=== PATIENT | male | born 1975 | race Caucasian/White ===

== ENCOUNTER → 2018-09-11 | Outpatient (CLI) | payer MEDICARE, MEDICAID, SELFPAY ==
--- NOTE | 2018-09-11 14:35 | CT_ITS ---
STUDY: CT BRAIN WITHOUT CONTRAST REASON FOR EXAM: Male, 43 years old. Headache RADIATION DOSAGE (If Supplied By Facility): CTDIvol = ( 60.81 ) mGy, DLP = ( 1044.28 ) mGycm TECHNIQUE: Transaxial CT imaging of the brain was performed without administration of intravenous contrast material. Individualized dose optimization techniques were used for this CT. COMPARISON: MRI dated 03/15/2014 FINDINGS: There is no acute bleed or infarct. There are normal white matter tracts. The ventricles are normal in configuration. There is no hydrocephalus. The visualized paranasal sinuses are clear. The mastoid air cells are well aerated. There is no skull fracture. CT/Brain/Head without Contrast IMPRESSION: No acute intracranial abnormality. Electronically Signed: Yair Harley, at 15:27 EDT Tel , Service support ,
== END | disposition home or self-care (01) ==
LOC: CT 14:32
PROVIDERS: Family Provider Internal Medicine; PCP Internal Medicine; Referring Provider Nurse Practitioner Family; Visit Provider Nurse Practitioner Family
DX: G44.52 New daily persistent headache (NDPH) (principal); H53.8 Other visual disturbances
CPT/HCPCS: 70450

== ENCOUNTER → 2019-01-26 15:06 | Outpatient (CLI) | payer MEDICARE, SELFPAY ==
--- NOTE | 2019-01-26 15:17 | MRI_ITS ---
STUDY: MRI BRAIN WITH AND WITHOUT CONTRAST REASON FOR EXAM: Male, 43 years old. diplopia, FRONTAL HEADACHE TECHNIQUE: Standardized multiplanar fat and water weighted pulse sequences were obtained. IV Dotarem 20 was administered for the contrast portion of the examination. COMPARISON: None. FINDINGS: Normal size of the ventricles and extra-axial spaces for the patient's age. Normal white matter tracts of the supratentorial brain. Normal bilateral basal ganglia. Normal thalami. There is no extra-axial fluid accumulation. Normal flow voids within the major intracranial circulation suggesting patency by spin echo criteria. Normal venous enhancement. There is no enhancing intra-axial or extra-axial abnormality. Normal sella turcica, pituitary gland, infundibular stalk, optic chiasm and hypothalamus. Normal tectal plate and pineal gland. Normal midbrain, janna and medulla. Normal cerebellum. Normal basal cisterns. Normal bilateral temporal bones. Normal bilateral internal auditory canals. No demonstrated orbital abnormality, within the constraints of a routine brain study. Normal visualized paranasal sinuses. Normal calvarium and skull base. Normal visualized soft tissue structures. Normal visualized upper cervical spine. MRI/Brain W/WO Contrast IMPRESSION: Normal unenhanced and enhanced MRI of the brain. Electronically Signed: Nataly Ledbetter, at 7:13 EST Tel , Service support ,
== END ==
PROVIDERS: Family Provider Family Medicine; PCP Family Medicine; Referring Provider Psychiatry & Neurology Neurology; Visit Provider Psychiatry & Neurology Neurology
DX: H53.2 Diplopia (principal)
CPT/HCPCS: 70553; A9575

== ENCOUNTER → 2019-03-01 13:41 | Outpatient (CLI) | payer MEDICARE, SELFPAY ==
[2016-07-06 13:58] VITALS: BMI 33.0
[2019-03-01 14:07] LABS: Absolute Lymphocyte Count 2.45 X10^3/uL (0.83-4.51); Absolute Neutrophil Count 5.3 X10^3/uL (2.0-7.7); Basophil# 0.01 X10^3/uL; Basophil% 0.1 % (0-1); Eosinophil# 0.25 X10^3/uL; Eosinophils% 2.8 % (0-5); Hematocrit 47.5 % (40-54); Hemoglobin 16.2 g/dL (13.0-16.5); Lymphocyte # 2.45 X10^3/ul (4.0); Lymphocyte % 27.7 % (19-41); Mean Corp Hgb Conc 34.1 g/dL (32-36); Mean Corpuscular Hgb 30.2 pg (27.0-32.0); Mean Corpuscular Volume 88.5 fL (80-94); Mean Platelet Vol. 11.4 fl (6.2-12.0); Monocyte# 0.86 X10^3/uL; Monocyte% 9.7 % (0-10); NRBC Flagged by Analyzer 0 % (0-5); Neutrophil # 5.25 X10^3/uL (2.7-7.7); Neutrophil % 59.4 % (47-70); Platelet Count 185 K/mm3 (150-450); RBC Distribution Width CV 12.8 % (11.6-14.6); RBC Distribution Width SD 40.6 fl (35.1-43.9); Red Blood Count 5.37 M/mm3 (4.6-6.2); White Blood Count 8.9 K/mm3 (4.4-11.0)
[2019-03-01 14:36] LABS: ALB/GLOB Ratio 1.2 RATIO (0.9-2.4); AST(SGOT) 16 U/L (15-37); Alanine Aminotransfer ALT/SGPT 27 U/L (16-61); Albumin, Serum 3.8 g/dL (3.2-5.0); Alkaline Phosphatase 100 U/L (45-117); Anion Gap 5 (5-15); BUN 13 mg/dL (7-18); BUN/Creat Ratio 11.4 RATIO (10-20); Calcium,Total 8.3 mg/dL (8.5-10.1); Chloride 108 mmol/L (98-107); Creatinine, Serum 1.14 mg/dL (0.70-1.30); EST Glomerular Filtration Rate 74 mL/min (>60); Est Glom Filt Rate - Afr Amer 89 mL/min (>60); Globulin 3.3 g/dL (2.2-4.2); Glucose 124 mg/dL (74-106); Potassium 4.1 mmol/L (3.5-5.1); Protein, Total 7.1 g/dL (6.4-8.2); Sodium Level 141 mmol/L (136-145)
[2019-03-05 13:05] LABS: Trileptal-Oxcarbazepine 19 ug/mL (10-35)
== END ==
PROVIDERS: Family Provider Family Medicine; PCP Family Medicine; Referring Provider Psychiatry & Neurology Neurology; Visit Provider Psychiatry & Neurology Neurology
DX: G40.009 Localization-related (focal) (partial) idiopathic epilepsy and epileptic syndromes with seizures of localized onset, not intractable, without status epilepticus (principal)
CPT/HCPCS: 36415; 80053; 82542; 85025

== ENCOUNTER → 2019-06-01 | Outpatient (CLI) | payer MEDICARE, SELFPAY ==
[2016-07-06 13:58] VITALS: BMI 33.0
[2019-06-01 13:04] LABS: Amphetamine Urine VISTA NEGATIVE (<1000 ng/mL); Barbiturate Urine VISTA NEGATIVE (< 200 ng/mL); Benzodiazepine Urine VISTA NEGATIVE (< 200 ng/mL); Cocaine Urine VISTA NEGATIVE (< 300 ng/mL); Ecstacy Urine VISTA NEGATIVE (< 500 ng/mL); Methadone Urine VISTA NEGATIVE (< 300 ng/mL); PCP Urine VISTA NEGATIVE (< 25 ng/mL); THC Urine VISTA NEGATIVE (< 50 ng/mL); Vista UDS pH Range 6
== END | disposition home or self-care (01) ==
LOC: LABSPEC 11:49 → LAB 11:59
PROVIDERS: PCP Family Medicine; Referring Provider Family Medicine; Visit Provider Family Medicine
DX: Z51.81 Encounter for therapeutic drug level monitoring (principal)
CPT/HCPCS: 80307

== ENCOUNTER → 2019-09-28 | Outpatient (CLI) | payer MEDICARE, SELFPAY ==
--- NOTE | 2019-09-28 12:53 | CT_ITS ---
STUDY: CT BRAIN WITHOUT CONTRAST REASON FOR EXAM: Male, 44 years old. EPILEPSY/INCREASING SEIZURES. Went from petit mal to grand mal RADIATION DOSAGE (If Supplied By Facility): CTDIvol = ( 44.99 ) mGy, DLP = ( 922.90 ) mGycm TECHNIQUE: Transaxial CT imaging of the brain was performed without administration of intravenous contrast material. Individualized dose optimization techniques were used for this CT. COMPARISON: 09/11/2018 FINDINGS: Normal soft tissue structures. Normal calvarium. Normal size ventricles and extra-axial spaces for the patient''s age. Normal white matter tracts of the cerebral hemispheres. Normal basal ganglia and thalami. Normal brainstem. Normal cerebellum. There is no intracranial hemorrhage. There are no findings of an acute ischemic infarction. Normal visualized paranasal sinuses. CT/Brain/Head without Contrast IMPRESSION: Normal unenhanced CT scan of the brain. Electronically Signed: Terry Diehl MD at 13:12 EDT , Service support ,
== END | disposition home or self-care (01) ==
PROVIDERS: PCP Family Medicine
DX: G40.009 Localization-related (focal) (partial) idiopathic epilepsy and epileptic syndromes with seizures of localized onset, not intractable, without status epilepticus (principal)
CPT/HCPCS: 70450

== ENCOUNTER → 2019-10-04 | Outpatient (CLI) | payer MEDICARE, SELFPAY ==
[2019-10-08 04:41] LABS: Trileptal-Oxcarbazepine 18 ug/mL (10-35)
== END | disposition home or self-care (01) ==
LOC: LAB 14:12
PROVIDERS: PCP Family Medicine
DX: G40.009 Localization-related (focal) (partial) idiopathic epilepsy and epileptic syndromes with seizures of localized onset, not intractable, without status epilepticus (principal)
CPT/HCPCS: 36415; 82542

== ENCOUNTER → 2021-07-06 | Outpatient (CLI) | payer MEDICARE, SELFPAY ==
[2021-07-06 13:23] LABS: Absolute Lymphocyte Count 2.97 X10^3/uL (0.83-4.51); Absolute Neutrophil Count 5.7 X10^3/uL (2.0-7.7); Basophil# 0.01 X10^3/uL; Basophil% 0.1 % (0-1); Eosinophil# 0.21 X10^3/uL; Eosinophils% 2.2 % (0-5); Hematocrit 49.6 % (40-54); Hemoglobin 16.7 g/dL (13.0-16.5); Lymphocyte # 2.97 X10^3/ul (0.83-4.51); Lymphocyte % 30.8 % (19-41); Mean Corp Hgb Conc 33.7 g/dL (32-36); Mean Corpuscular Hgb 28.3 pg (27.0-32.0); Mean Corpuscular Volume 83.9 fL (80-94); Mean Platelet Vol. 11.1 fl (6.2-12.0); Monocyte# 0.75 X10^3/uL; Monocyte% 7.8 % (0-10); NRBC Flagged by Analyzer 0 % (0-5); Platelet Count 233 K/mm3 (150-450); RBC Distribution Width SD 37.1 fl (35.1-43.9); Red Blood Count 5.91 M/mm3 (4.6-6.2); White Blood Count 9.7 K/mm3 (4.4-11.0)
[2021-07-06 13:57] LABS: ALB/GLOB Ratio 1.1 RATIO (0.9-2.4); AST(SGOT) 11 U/L (15-37); Alanine Aminotransfer ALT/SGPT 28 U/L (16-61); Albumin, Serum 4.1 g/dL (3.2-5.0); Alkaline Phosphatase 125 U/L (45-117); Anion Gap 5 (5-15); BUN 13 mg/dL (7-18); BUN/Creat Ratio 10.5 RATIO (10-20); Calcium,Total 9.2 mg/dL (8.5-10.1); Chloride 101 mmol/L (98-107); Creatinine, Serum 1.24 mg/dL (0.70-1.30); EST Glomerular Filtration Rate 66 mL/min (>60); Est Glom Filt Rate - Afr Amer 80 mL/min (>60); Globulin 3.6 g/dL (2.2-4.2); Glucose 329 mg/dL (74-106); Potassium 4.1 mmol/L (3.5-5.1); Protein, Total 7.7 g/dL (6.4-8.2); Sodium Level 135 mmol/L (136-145)
[2021-07-10 20:05] LABS: Trileptal-Oxcarbazepine 17 ug/mL (10-35)
== END | disposition home or self-care (01) ==
PROVIDERS: PCP Family Medicine; Referring Provider Psychiatry & Neurology Neurology; Visit Provider Psychiatry & Neurology Neurology
DX: G40.009 Localization-related (focal) (partial) idiopathic epilepsy and epileptic syndromes with seizures of localized onset, not intractable, without status epilepticus (principal)
CPT/HCPCS: 36415; 80053; 82542; 85025

== ENCOUNTER → 2021-07-09 | Outpatient (CLI) | payer MEDICARE, SELFPAY ==
[2021-07-09 15:23] LABS: Hemoglobin A1c 11.6 % (3.8-5.6)
== END | disposition home or self-care (01) ==
LOC: LAB 13:47
PROVIDERS: PCP Family Medicine; Visit Provider Nurse Practitioner Family
DX: R73.09 Other abnormal glucose (principal)
CPT/HCPCS: 36415; 83036

== ENCOUNTER 2022-10-13 22:32 | Emergency (ER) | payer MEDICARE, MEDICAID, SELFPAY ==
[2022-10-13 22:32] VITALS: BP 147/81; PULSE 83; RESP 16; TEMP 36.8; O2SAT 98; BMI 29.1
--- NOTE | 2022-10-13 23:17 | ED.VIS.LOWEX ---
HPI History of Present Illness Chief Complaint: Laceration Narrative Narrative: 47-year-old male presenting with right great toe pain. He states he was a little agitated at home and went to kick a box that the sand was sitting on accidentally kicked a fan. He had some mild bleeding and mild pain of the right great toe. Bleeding is controlled. Last tetanus less than 5 years ago. Patient was otherwise healthy prior to this. He was able to ambulate after the injury. [facility] Medical History Diabetes Home Medications oxcarbazepine 300 mg tablet 600 mg PO BID 05/12/13 [History Last Taken Unknown] orphenadrine citrate 100 mg tablet,extended release 100 mg PO PRN PRN Pain 05/22/16 [History Last Taken Unknown] clindamycin HCl 150 mg capsule 300 mg (2 x 150 mg) PO 4X/DAY ##80 07/06/16 [Rx Last Taken Unknown] lisinopril 30 mg tablet (Zestril) 30 mg PO DAILY 07/06/16 [History Last Taken Unknown] tramadol 50 mg tablet 50 mg PO Q8H PRN pain 3 days #12 tabs 10/13/22 [Rx Last Taken Unknown] Allergy/AdvReac Type Severity Reaction Status Date / Time acetaminophen [From Tylenol] Allergy Unknown Verified 10/13/22 22:35 ibuprofen Allergy Swelling Verified 10/13/22 22:35 Social History Smoking Status: Never smoker [facility] ED Constitutional Constitutional ED: Denies chills or fever(s) Eyes Eyes: Denies blurry vision or change in vision ENT ENT ED: Denies rhinorrhea or sore throat Cardiovascular Cardiovascular: Denies chest pain or palpitations Respiratory/Chest Respiratory/Chest: Denies cough or dyspnea Gastrointestinal Gastrointestinal: Denies abdominal pain or constipation Genitourinary Genitourinary ED: Denies dysuria or hematuria Musculoskeletal Musculoskeletal: Reports other Details: Right great toe pain ; Denies arthralgias or back pain Integumentary Reports other Details: Superficial abrasions to the right great toe Psychiatric Psychiatric: Reports anxiety EXAM Physical Exam Const Vital Signs: 10/13/22 22:32 Temperature 98.2 F Temperature Source Temporal Pulse Rate 83 Respiratory Rate 16 Blood Pressure 147/81 H Blood Pressure Mean 103 Pulse Ox 98 Oxygen Delivery Method Room Air Positive well nourished General Appearance ED: NAD HEENT Reports moist mucous membranes normocephalic Eyes PERRL Chest Wall inspection of chest normal Resp normal respiratory effort and no retractions Cardio regular rate and regular rhythm Neuro oriented x3 and CN's II-XII intact bilaterally Motor Exam: strength 5/5 throughout Psych mental status grossly normal Skin Skin Narrative: Superficial Lacerations noted just proximal to the nailbed. No bony tenderness or step-offs. No subungual hematoma. No active bleeding MDM MDM MDM Narrative Medical decision making narrative: Patient presenting with superficial abrasions to the right great toe. He does have pain in the right great toe but he states it is not severe. I will obtain an x-ray of the right great toe to make sure that it is not broken. Patient's tetanus is up-to-date. He states he is allergic to Tylenol and ibuprofen. I had nursing apply an ice pack to the foot. Foot x-ray of the right foot on my interpretation shows shows a nondisplaced fracture of the lateral base of the distal phalanx of the right great toe. Radiology agrees. Patient given Ultram for pain since he cannot take Tylenol and ibuprofen. Wound was cleaned and dressed. He is put in a postop shoe. Was given follow-up with podiatry. Impression: 1. Superficial lacerations 2. Right great toe fracture Radiography Diagnostic Testing: Clinical Impression(s) from Imaging Studies Foot X-Ray 10/13/22 23:20 IMPRESSION: Nondisplaced fracture of the lateral base of the distal phalanx of the great toe. Electronically Signed: Archie Hull DO at 23:38 EDT , Discharge Plan Triage Chief Complaint: Laceration ED Provider: Billy Hamm Dx/Rx/DC Orders Instructions: ED Laceration Small or ..., ED Fracture, Toe, Closed Prescriptions: New tramadol 50 mg tablet 50 mg PO Q8H PRN (Reason: pain) 3 Days Qty: 12 0RF No Action oxcarbazepine 300 MG tablet 600 mg PO BID orphenadrine citrate 100 MG tablet 100 mg PO PRN PRN (Reason: Pain) lisinopril [Zestril] 30 MG tablet 30 mg PO DAILY clindamycin HCl 150 MG capsule 300 mg PO 4X/DAY Qty: 80 0RF Primary Care Provider: German Bansal Referrals: Deandre Umaña DPM [Med Staff - Active Staff] - 3-5 Days German Bansal MD [Primary Care Provider] - Disposition Disposition: Home, Self Care
--- NOTE | 2022-10-13 23:20 | RAD_ITS ---
INDICATION: pain EXAMINATION/TECHNIQUE: X-RAY - RIGHT XR Foot Min 3 Views COMPARISON: None. FINDINGS: SOFT TISSUES: Unremarkable. BONES/JOINTS: Nondisplaced fracture of the lateral base of the distal phalanx of the great toe. No significant degenerative changes. No erosive changes. Mild hallux valgus. RAD/Foot min 3 Views IMPRESSION: Nondisplaced fracture of the lateral base of the distal phalanx of the great toe. Electronically Signed: Archie Hull DO at 23:38 EDT ,
== END 2022-10-14 00:12 | disposition home or self-care (01) ==
PROVIDERS: Emergency Provider Student in an Organized Health Care Education/Training Program; PCP Family Medicine; Visit Provider Student in an Organized Health Care Education/Training Program
DX: S92.424A Nondisplaced fracture of distal phalanx of right great toe, initial encounter for closed fracture (principal); E11.9 Type 2 diabetes mellitus without complications; F41.9 Anxiety disorder, unspecified; W22.8XXA Striking against or struck by other objects, initial encounter
CPT/HCPCS: 73630; 99282

== ENCOUNTER → 2024-03-19 | Outpatient (CLI) | payer MEDICARE, MEDICAID, SELFPAY ==
[2024-03-19 15:57] LABS: Absolute Lymphocyte Count 2.78 X10^3/uL (0.83-4.51); Absolute Neutrophil Count 5.9 X10^3/uL (2.0-7.7); Basophil# 0.01 X10^3/uL; Basophil% 0.1 % (0-1); Eosinophil# 0.57 X10^3/uL; Eosinophils% 5.6 % (0-5); Hematocrit 45.5 % (40-54); Hemoglobin 14.9 g/dL (13.0-16.5); Lymphocyte # 2.78 X10^3/ul (0.83-4.51); Lymphocyte % 27.3 % (19-41); Mean Corp Hgb Conc 32.7 g/dL (32-36); Mean Corpuscular Hgb 28.2 pg (27.0-32.0); Mean Platelet Vol. 11.6 fl (6.2-12.0); Monocyte# 0.88 X10^3/uL; Monocyte% 8.6 % (0-10); NRBC Flagged by Analyzer 0 % (0-5); Neutrophil # 5.92 X10^3/uL (2.7-7.7); Platelet Count 213 K/mm3 (150-450); RBC Distribution Width CV 12.2 % (11.6-14.6); RBC Distribution Width SD 38.5 fl (35.1-43.9); Red Blood Count 5.29 M/mm3 (4.6-6.2); White Blood Count 10.2 K/mm3 (4.4-11.0)
[2024-03-19 16:46] LABS: ALB/GLOB Ratio 1.1 RATIO (0.9-2.4); AST(SGOT) 14 U/L (15-37); Alanine Aminotransfer ALT/SGPT 22 U/L (16-61); Albumin, Serum 3.9 g/dL (3.2-5.0); Alkaline Phosphatase 92 U/L (45-117); Anion Gap 5 (5-15); BUN 13 mg/dL (7-18); BUN/Creat Ratio 13.1 RATIO (10-20); Calcium,Total 8.8 mg/dL (8.5-10.1); Chloride 102 mmol/L (98-107); Creatinine, Serum 0.99 mg/dL (0.70-1.30); EST Glomerular Filtration Rate 85 mL/min (>60); Est Glom Filt Rate - Afr Amer 103 mL/min (>60); Globulin 3.4 g/dL (2.2-4.2); Glucose 90 mg/dL (74-106); Potassium 4.1 mmol/L (3.5-5.1); Protein, Total 7.3 g/dL (6.4-8.2); Sodium Level 133 mmol/L (136-145)
[2024-03-26 08:07] LABS: Trileptal-Oxcarbazepine 15 ug/mL (10-35)
== END | disposition home or self-care (01) ==
LOC: LAB 14:11
PROVIDERS: PCP Family Medicine; Referring Provider Psychiatry & Neurology Neurology; Visit Provider Psychiatry & Neurology Neurology
DX: G40.009 Localization-related (focal) (partial) idiopathic epilepsy and epileptic syndromes with seizures of localized onset, not intractable, without status epilepticus (principal)

== ENCOUNTER 2024-08-31 07:31 | Emergency (ER) | payer MEDICARE, MEDICAID, SELFPAY ==
[2024-08-31 07:32] VITALS: BP 129/88; PULSE 88; RESP 18; TEMP 36.6; O2SAT 100; BMI 29.6
--- NOTE | 2024-08-31 07:50 | CT_ITS ---
PROCEDURE: BRAIN/HEAD WITHOUT CONTRAST 08/31/2024 REASON FOR EXAM: TRAUMA TECHNIQUE: BRAIN/HEAD WITHOUT CONTRAST Coronal and Sagittal reconstruction series were provided. One or more dose reduction techniques were used (e.g., Automated exposure control, adjustment of the mA and/or kV according to patient size, use of iterative reconstruction technique. RADIATION DOSE SUMMARY: DLP: 813 mGycm COMPARISON: 09/28/2019 FINDINGS: There is no acute infarct, intracranial hemorrhage, or mass effect. There is no hydrocephalus or significant midline shift. No acute, depressed calvarial fractures. Moderate left anterior frontal scalp swelling. CT/Brain/Head without Contrast IMPRESSION: No acute intracranial process. Moderate left anterior frontal scalp swelling. Reading Location: [facility]
--- NOTE | 2024-08-31 07:51 | EDS_ITS ---
HPI History of Present Illness Chief Complaint: Seizure Informant: patient and EMS Narrative Narrative: 49-year-old male with a history of a seizure disorder states he had a seizure this morning. He was alone in his bathroom. He has not felt well for the last 2 or 3 days, subjective fevers, cramping in his body and his abdomen, some nausea, decreased p.o. intake, and today states he was sitting on the toilet to have the first bowel movement that he is had in 2 days, which is unusual for him. During this he was grunting and straining, and he remembers feeling very lightheaded and nauseated and then woke up on the floor, felt like he hit his head on the floor, but states at 1 point he felt like he was going to have a seizure and is fairly confident that he had a seizure. No one was with him to witness this. He takes seizure medications, has been compliant with them, no recent dosage changes, and he already took them this morning, presenting before 8 AM to the ED for this. He sustained a laceration to his face as a result of falling and hitting his head on the floor he states. He denies any other pain or injury. [facility] Medical History (Updated 08/31/24 @ 09:[address] Harshal Gilbert MD) Arthritis HTN (hypertension) Seizure disorder Diabetes Home Medications ?Medication ?Instructions ?Recorded ?Last Taken ?Type oxcarbazepine 300 mg tablet 600 mg PO BID 05/12/13 Unk nown History orphenadrine citrate 100 mg 100 mg PO PRN PRN Pain Unknown History tablet,extended release lisinopril 30 mg tablet (Zestril) 30 mg PO DAILY 07/06 Unknown History tramadol 50 mg tablet 50 mg PO Q8H PRN pain 3 days #12 10/13/22 Unknown Rx tabs levofloxacin 750 mg tablet 750 mg PO DAILY #4 tabs Unknown Rx Allergy/AdvReac Type Severity Reaction Status Date / Time acetaminophen (From Tylenol) Allergy Unknown Verified 10/13/22 22:35 ibuprofen Allergy Swelling Verified 10/13/22 22:35 Social History Smoking Status: Never smoker ROS ROS ED Constitutional Constitutional ED: Reports body ache(s), fatigue, fever(s) and subjective; Denies chills Eyes Eyes: Denies change in vision or diplopia ENT ENT ED: Denies rhinorrhea or sore throat Cardiovascular Cardiovascular: Reports syncope; Denies chest pain or palpitations Respiratory/Chest Respiratory/Chest: Reports cough; Denies dyspnea or sputum Gastrointestinal Gastrointestinal: Reports abdominal pain; Denies diarrhea, nausea or vomiting Genitourinary Genitourinary ED: Denies dysuria or hematuria Musculoskeletal Musculoskeletal: Denies back pain or neck pain Integumentary Denies abscess or rash Neurologic Neurologic: Reports as per HPI; Denies headache(s), paresthesias or weakness Psychiatric Psychiatric: Denies suicidal thoughts EXAM Physical Exam Const Vital Signs: 08/31/24 07:32 08/31/24 08:32 08/31/24 09:19 Temperature 97.9 F Temperature Source Oral Pulse Rate 88 73 80 Respiratory Rate 18 14 12 Blood Pressure 129/88 H 147/84 H 138/97 H Blood Pressure Mean 101 105 110 Pulse Ox 100 97 100 Oxygen Delivery Method Room Air Positive well nourished and well developed General Appearance ED: well developed and NAD HEENT Reports moist mucous membranes HEENT Narrative: Left forehead laceration full-thickness no crepitance or depression. No other signs of HEENT trauma. No Andres sign, no raccoon eyes, no CSF otorhinorrhea, no hemotympanum. normocephalic and atraumatic Eyes PERRL and EOMs intact bilaterally Neck full ROM and supple Resp normal respiratory effort and clear to auscultation bilaterally Cardio regular rate, regular rhythm and no murmurs GI non-tender and non-distended Auscultation: normoactive bowel sounds Palpation: soft Back/Spine no CVA tenderness General Back: other FROM Extremity normal to inspection General Extremety ED: Negative for edema, pulses abnormal or tenderness General Extremity: Negative for edema or pulses abnormal Neuro oriented x3, CN's II-XII intact bilaterally and no sensory deficits noted Sensorium / Orientation: awake and alert Motor Exam: strength 5/5 throughout Skin no rashes or lesions noted Skin Narrative: 5 cm full-thickness curvilinear laceration to the left forehead involving part of the eyebrow but not the eyelid. MDM MDM MDM Narrative Medical decision making narrative: Patient was sent for CT of the head before we did the repair of his laceration, my interpretation of CT is normal with no sign of acute intracranial injury/hemorrhage. 2 view chest x-ray was done also given the patient's fevers and mild cough, it appears to show a right middle lobe pneumonia on my interpretation radiology in agreement. This may explain the patient's illness. He does have a significant leukocytosis but his vital signs and oxygenation are normal, and clinically he is not septic. I think he can be treated as an outpatient for this. No seizure activity while in the emergency department. Started on antibiotics here, and advised to follow-up with his PCP and neurologist. As I discussed with him, a breakthrough seizure due to infection is certainly in the differential, it is also possible he had vasovagal syncope due to straining to have a bowel movement which we discussed. Regardless I thi nk he can continue his oxcarbazepine which he has been on a stable dose for several years, and follow-up with his doctor and neurology. Lab Data Attestation: I reviewed the patient's lab results. Labs: Laboratory Results - last 24 hr 08/31/24 08:10 WBC 16.1 H RBC 5.08 Hgb 14.8 Hct 42.9 MCV 84.4 MCH 29.1 MCHC 34.5 RDW Std Deviation 37.0 RDW Coeff of Saima 12.1 Plt Count 155 MPV 11.8 Immature Gran % (Auto) 0.400 Neut % (Auto) 77.2 H Lymph % (Auto) 9.2 L [place] % (Auto) 12.2 H Eos % (Auto) 0.9 Baso % (Auto) 0.1 Absolute Neuts (auto) 12.4 H Absolute Lymphs (auto) 1.48 Nucleated RBC % 0 Platelet Estimate A Sodium 129 L Potassium 4.1 Chloride 95 L Carbon Dioxide 20.7 L Anion Gap 13 BUN 15 Creatinine 1.15 Estim Creat Clear Calc 85.72 Est GFR (MDRD) Non-Af 78 BUN/Creatinine Ratio 12.7 Glucose 169 H Calcium 8.6 Total Bilirubin 0.71 AST 18 ALT 16 Alkaline Phosphatase 80 Total Protein 6.9 Albumin 3.9 Globulin 3.0 Albumin/Globulin Ratio 1.3 Radiography Diagnostic Testing: Clinical Impression(s) from Imaging Studies Brain CT 08/31/24 07:50 IMPRESSION: No acute intracranial process. Moderate left anterior frontal scalp swelling. Reading Location: [facility] Chest X-Ray 08/31/24 08:40 IMPRESSION: Right middle lobe opacity may reflect pneumonia, aspiration, and/or pulmonary vascular congestion. No pleural effusion or pneumothorax. Reading Location: [facility] Rhythm Strip Rhythm Strip: Sinus Rhythm Rate: 76 Ectopy: None EKG Initial EKG: Attestation: I personally reviewed and interpreted this EKG as follows: Interpretation: Sinus Rhythm and No Acute Injury Pattern Comments: Nml axis & intervals; nml EKG Procedures Lacerations Left forehead: Length: 5 cm Depth: Sub Q Shape: Linear Prep: Sterile Conditions and Chlorhexadine Laceration repair: Lidocaine with epi (3cc, 1%), Local and Skin sutures Irrigated (ml): 100 Number of Sutures/[place]: 6 Suture Information: Ethilon, Simple and 6-0 Discharge Plan Triage Chief Complaint: Seizure ED Provider: Harshal Gilbert Dx/Rx/DC Orders Clinical Impression: Awareness alteration, transient, Pneumonia, Facial laceration, Closed head injury without concussion, Seizure disorder Instructions: Treating Pneumonia, ED FACIAL LACERATION Suture Tape Prescriptions: New levofloxacin 750 mg tablet 750 mg PO DAILY Qty: 4 0RF Continued oxcarbazepine 300 MG tablet 600 mg PO BID orphenadrine citrate 100 MG tablet 100 mg PO PRN PRN (Reason: Pain) lisinopril [Zestril] 30 MG tablet 30 mg PO DAILY tramadol 50 mg tablet 50 mg PO Q8H PRN (Reason: pain) 3 Days Qty: 12 0RF Discontinued clindamycin HCl 150 MG capsule 300 mg PO 4X/DAY Qty: 80 0RF Primary Care Provider: German Bansal Referrals: Your neurologist [Other] - As soon as possible German Bansal MD [Primary Care Provider] - 5 Days for suture removal Print Language: Ukrainian Disposition Disposition: Home, Self Care
[2024-08-31] MEDS: Lidocaine/Epi/Tetracaine 50 ML 1 APPLIC TOPICAL (08:12)
[2024-08-31] MEDS: Ondansetron 4 MG/2 ML Vial IV (08:12)
[2024-08-31] MEDS: 0.9% Normal Saline (1000mL) 1,000 ML 999 ML IV (08:12)
[2024-08-31 08:32] VITALS: BP 147/84; PULSE 73; RESP 14; O2SAT 97
--- NOTE | 2024-08-31 08:40 | RAD_ITS ---
PROCEDURE: CHEST PA AND LATERAL 08/31/2024 REASON FOR EXAM: FEVERS, MILD COUGH TECHNIQUE: CHEST PA AND LATERAL COMPARISON: None FINDINGS: Right middle lobe opacity may reflect pneumonia, aspiration, and/or pulmonary vascular congestion. No pleural effusion or pneumothorax. Cardiac silhouette is within normal limits. RAD/Chest PA and Lateral IMPRESSION: Right middle lobe opacity may reflect pneumonia, aspiration, and/or pulmonary v ascular congestion. No pleural effusion or pneumothorax. Reading Location: [id number]
[2024-08-31 08:57] LABS: Absolute Lymphocyte Count 1.48 X10^3/uL (0.83-4.51); Absolute Neutrophil Count 12.4 X10^3/uL (2.0-7.7); Basophil# 0.02 X10^3/uL; Basophil% 0.1 % (0-1); Eosinophil# 0.15 X10^3/uL; Eosinophils% 0.9 % (0-5); Hematocrit 42.9 % (40-54); Hemoglobin 14.8 g/dL (13.0-16.5); Lymphocyte # 1.48 X10^3/ul (0.83-4.51); Lymphocyte % 9.2 % (19-41); Mean Corp Hgb Conc 34.5 g/dL (32-36); Mean Corpuscular Hgb 29.1 pg (27.0-32.0); Mean Corpuscular Volume 84.4 fL (80-94); Mean Platelet Vol. 11.8 fl (6.2-12.0); Monocyte# 1.97 X10^3/uL; Monocyte% 12.2 % (0-10); NRBC Flagged by Analyzer 0 % (0-5); Neutrophil # 12.44 X10^3/uL (2.7-7.7); Neutrophil % 77.2 % (47-70); POSITIVE DIFFERENTIAL YES; Platelet Count 155 K/mm3 (150-450); RBC Distribution Width CV 12.1 % (11.6-14.6); Red Blood Count 5.08 M/mm3 (4.6-6.2); White Blood Count 16.1 K/mm3 (4.4-11.0)
[2024-08-31 09:03] LABS: Differential Indicated SCAN CRITERIA MET
[2024-08-31] MEDS: Lidocaine 1% /Epi 1:100 (20ml) 20 ML Vial INFILT (09:18)
[2024-08-31] MEDS: levoFLOXacin 750 MG Tablet PO (09:18)
[2024-08-31 09:19] VITALS: BP 138/97; PULSE 80; RESP 12; O2SAT 100
[2024-08-31 09:34] LABS: Platelet Estimate A (ADEQ)
[2024-08-31 09:39] LABS: ALB/GLOB Ratio 1.3 RATIO (0.9-2.4); AST(SGOT) 18 U/L (<=37); Alanine Aminotransfer ALT/SGPT 16 U/L (<=46); Albumin, Serum 3.9 g/dL (3.5-5.0); Alkaline Phosphatase 80 U/L (40-129); Anion Gap 13 (5-15); BUN 15 mg/dL (4-19); BUN/Creat Ratio 12.7 RATIO (10-20); Calcium,Total 8.6 mg/dL (7.6-11.0); Carbon Dioxide 20.7 mmol/L (21.0-32.0); Chloride 95 mmol/L (98-108); Creatinine, Serum 1.15 mg/dL (0.70-1.20); EST Glomerular Filtration Rate 78 (>60); Estimated Creatinine Clearance 85.72 ml/min (50-250); Glucose 169 mg/dL (70-99); Potassium 4.1 mmol/L (3.3-5.1); Protein, Total 6.9 g/dL (5.9-8.4); Sodium Level 129 mmol/L (133-145); Total Bilirubin 0.71 mg/dL (0.00-1.30)
[2024-08-31 10:00] VITALS: BP 132/80; PULSE 78; RESP 14; TEMP 36.7; O2SAT 98
== END 2024-08-31 10:14 | disposition home or self-care (01) ==
PROVIDERS: Emergency Provider Emergency Medicine; PCP Family Medicine; Visit Provider Emergency Medicine
DX: R40.4 Transient alteration of awareness (principal); G40.909 Epilepsy, unspecified, not intractable, without status epilepticus; E11.9 Type 2 diabetes mellitus without complications; S01.81XA Laceration without foreign body of other part of head, initial encounter; J18.9 Pneumonia, unspecified organism; I10 Essential (primary) hypertension; Z79.899 Other long term (current) drug therapy; D72.829 Elevated white blood cell count, unspecified; W18.11XA Fall from or off toilet without subsequent striking against object, initial encounter
CPT/HCPCS: 12052; 70450; 71046; 80053; 85025; 93005; 96361; 96374; 99285; A4216; J2405